=== PATIENT | male | born 1955 | race Caucasian/White ===

== ENCOUNTER 2018-07-05 13:36 | Inpatient (IN) | payer MEDICAID ==
[2018-07-05] MEDS ORDERED: PETROLAT,WHT/MIN OIL/SOD CHL 3.5 GM OPHT.OINT EACHEYE PRN (16:21)
[2018-07-05] MEDS ORDERED: GUAIFENESIN/DM 10 ML UDCUP PO PRN (16:50)
--- NOTE | 2018-07-05 18:09 | GHP ---
POST ADMISSION PHYSICIAN EVALUATION AND REHABILITATION TREATMENT PLAN. DATE OF ADMISSION: 07/05/2018 TIME OF EVALUATION: 16:35 REFERRING FACILITY: [facility]. REFERRING PHYSICIAN: Jake Cormier MD IMPAIRMENT GROUP: [id number]. DATE OF ONSET: 06/14/2018. CONSULTING PHYSICIANS: Pulmonary/Critical Care: Dr. Efren Zacraias. Neurologist: Dr. Hull. Hospital Medicine: Dr. Trejo. REHABILITATION DIAGNOSIS: Debility status post traumatic cardiac arrest with cognitive dysfunction. ETIOLOGIC DIAGNOSIS: Nontraumatic brain dysfunction. HISTORY OF PRESENT ILLNESS: This patient was admitted to [facility] on 06/14/2018, after being pinned under a car on which he was working, for approximately 1 hour. He suffered traumatic asphyxia with cardiac arrest. He had field intubation and return of spontaneous circulation and was placed on hypothermia after cardiac arrest protocol. Hospital evaluation included a chest CT which showed a nondisplaced right 1st rib fracture. Hospital course was complicated by rhabdomyolysis, metabolic encephalopathy, anemia, thrombocytopenia, aspiration pneumonia, atrial fibrillation, hypertension, acute kidney injury, and hypernatremia. He was extubated on 06/21/2018. A video fluoroscopic swallow study was done on 2017, which showed a high risk of aspiration. He had a feeding tube placed. It was be removed on 07/03/2018, as it became clogged. At that point, he was able to swallow and take adequate oral nutrition and hydration, so it was not replaced. He had functional and cognitive impairments, so when he was medically stabilized, he was ready for transfer to inpatient rehabilitation. LABS AND STUDIES IN THE HOSPITAL: CBC on 06/29/2018, showed normalized white blood cell count, which had been elevated at 5.16. He had anemia with a hemoglobin of 8.8 and hematocrit of 27.2, and these had been declining for several days. He had thrombocytosis with a platelet count of 507. The margoth of his platelet count had been 50 on 06/21/2018. He had a coagulopathy with elevated PT and PTT and these were improving as of 06/23/2018. Most recent metabolic profile showed a hyponatremia with a sodium of 133, otherwise, renal function and electrolytes were within normal limits. He had a low calcium of 7.5, and there had been an albumin as low as 1.8 during his stay. He had mild elevation of ALT at 110 and an alkaline phosphatase of 182. He had rhabdomyolysis with a creatine kinase of 18,708, on 06/17/2018, which subsequently improved. He had likely shock liver with AST and ALT greater than 2000. Troponin was normal. BNP was slightly elevated at 547. On admission, abdominal CT showed no abdominal or pelvic hemorrhage or organ laceration. He had degenerative lumbar spine with at least moderate stenosis at L4-L5. C-spine CT showed severe degenerative disk disease at C3-C4 through C6-C7 with moderate central canal stenosis. Chest CT showed no pneumothorax, no aortic rupture, dissection or mediastinal hematoma and showed a nondisplaced right 1st rib fracture. Head CT showed no acute hemorrhage or mass effect and no fractures. PRECAUTIONS: He is a fall risk. He has aspiration precautions. ACTIVE COMORBIDITIES: He has tier 2 comorbidity of dysphagia. He otherwise has no active tier 1, tier 2 or tier 3 comorbidities. PAST MEDICAL HISTORY: He denies any significant past medical history. PAST SURGERY HISTORY: Has not had previous surgeries. PREHOSPITAL MEDICATIONS: He was taking no medications. ADMISSION MEDICATIONS: 1. Metoprolol 25 mg p.o. twice daily. 2. Ophthalmic ointment each eye at bedtime. ALLERGIES: There are no known drug allergies. SOCIAL HISTORY: He lives with family and relatives and plans to discharge to his mother's home with assistance as needed. 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 He is not a tobacco smoker, though he was a smoker of marijuana. 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 FAMILY HISTORY: Noncontributory. REVIEW OF SYSTEMS: He has lost considerable weight during his hospitalization. He denies pain. He denies dyspnea. He has a cough which bothers him more at night and interrupts sleep. He denies nausea, vomiting, constipation, or diarrhea. He denies dysuria or urinary urgency or frequency. He denies joint pain or joint swelling. He is aware of some memory loss. He feels weak in his arms and legs, but otherwise denies any focal neurologic complaints. No vision changes and no headache. Otherwise, a 10-point review of systems is negative. PHYSICAL EXAM: VITAL SIGNS: Blood pressure is 127/80, heart rate is 79, respiratory rate is 19, oxygen saturation is 93% on room air. Temperature is 36.7 degrees centigrade. His weight is 54.1 kg for a body mass index of 18.7. GENERAL: This is a thin man, appears his chronologic age, sitting in a chair, dressed in street clothes, cooperative and in no acute distress. HEENT: Extraocular movements are intact. Pupils are equal, round, reactive to light. Mucous membranes are moist. Dentition is in good condition. NECK: Supple. HEART: Regular rate and rhythm with no murmurs, rubs, or gallops, and no JVD. LUNGS: Clear to auscultation bilaterally. ABDOMEN: Soft, nontender, nondistended with normoactive bowel sounds and no hepatosplenomegaly. EXTREMITIES: There is no cyanosis or clubbing. There is mild edema around the ankles bilaterally. Radial and dorsalis pedis pulses are 2+ bilaterally. NEUROLOGIC: He is alert and oriented x3. He is verbose. Cranial nerves 2-12 are grossly intact. There is no focal weakness. Sensation is intact to light touch. He is able to arise from seated with just contact guard assist and attains balance within normal stance using a front-wheeled walker. SKIN: He has erythema over the sacrum and gluteal fold. It is blanching. There is no ulceration. CURRENT LEVEL OF FUNCTION: Per the preadmission screen, he was on a dysphagia 2 diet with thin liquids. He required supervision with eating for limited bite size and limitation of distractions. He took liquids via cups or teaspoons. He needed multiple swallows and to stay upright with all p.o. intake. Grooming was done with contact guard using a front-wheeled walker to stand at the sink. Bathing required setup and moderate assistance with voice cues. Dressing the upper body required setup and standby assist with voice cues and the lower body required moderate assist with voice cues. Toileting required assistance for mine care. He had 1 episode of bladder incontinence on 06/28/2018, but otherwise was continent and he was continent of bowel. Bed mobility required contact guard assist. Transfers required contact guard to minimal assist for [id number]. He used a front-wheeled walker. Seated balance required standby assist and standing balance required minimal assist. Endurance was fair. He ambulated 350 feet with standby assist. He was found to have moderate to severe impairment in attention and executive function. On today's exam, he may require less assistance with standing and balance. Otherwise, there are no significant changes from the preadmission screen. IMPRESSION: This is a 63-year-old man who was pinned under a car that he was working on and suffered asphyxia and cardiac arrest. He was field resuscitated and field intubated and brought to the hospital with hypothermia after cardiac arrest protocol. He had hospital complications, including rhabdomyolysis, acute kidney injury, metabolic encephalopathy, aspiration pneumonia, atrial fibrillation, hypernatremia and subsequently hyponatremia after fluid resuscitation. He had dysphagia and high risk of aspiration and has developed severe malnutrition. He had tube feeding until the feeding tube became clogged and subsequently has recovered swallowing sufficient to maintain his nutrition and hydration needs. He was otherwise medically stable and ready for inpatient rehabilitation. His goal is to complete a rehabilitation stay and discharge to his mother's home with support of his sister. For a safe discharge, he will need to tolerate the least restrictive diet. He will need to demonstrate insight into his deficits to allow for the ability to be left alone for short periods of time. He will need to achieve modified independence for ADLs and functional activities and there will be patient and family education around his injury and impairments. He will have therapy with physical therapy, occupational therapy, and speech language pathology for 60 minutes per day for each discipline on 5-7 days of the week. His expected duration of stay is 7-10 days. It is anticipated that upon discharge he will continue to benefit from home health services including nursing, speech and language pathology, a nurse's aide , occupational therapy, and physical therapy. Additionally, he will likely benefit from a brain injury support group. PLAN: 1. Debility following prolonged hospitalization status post traumatic asphyxia and cardiac arrest on 06/14/2018, with impairments to mobility and activities of daily living. Physical and occupational therapy to optimize his mobility and activities of daily living. Toward a modified independent level. 2. Cognitive impairment status post asphyxia, cardiac arrest and metabolic encephalopathy. He appears to have considerable improvement. Assessment and treatment per Speech and Language Pathology. 3. Hypertension has been treated with metoprolol and this will be continued. 4. Cough at night interfering with sleep. I have prescribed guaifenesin/ dextromethorphan q.4 hours p.r.n. It is hoped that if his cough can be suppressed, he will get better sleep. This may be a postinfectious cough which potentially could respond to naproxen. He does not otherwise show signs or symptoms of congestive heart failure, though he had a mildly elevated BNP in the hospital. Echocardiogram on 06/17/2018, showed normal global systolic LV function with an ejection fraction of 60%. No regional wall motion abnormalities. Normal diastolic left ventricular function. Trivial mitral valve regurgitation and trivial tricuspid valve regurgitation. 5. Malnutrition and weight loss. There will be a consultation with the dietitian. 6. Atrial fibrillation in the hospital. Subsequently, he has been in regular sinus rhythm. Continue metoprolol. 7. First right rib fracture is currently asymptomatic. 8. Hyponatremia with a sodium of 133 two days ago. I will repeat a basic metabolic profile in the morning. 9. Anemia. I will repeat a CBC in the morning. 10. Prophylaxis. He has ambulated greater than 350 feet and he is low risk for deep venous thrombosis. We will not initiate pharmacologic prophylaxis. 11. Followup. There are no specific instructions in the discharge information from the hospital. Presumably, he will have follow up with Trauma Surgery as well as possibly Cardiology. This will be determined during his stay. He will need to establish with a primary care provider. /[id number]/MODL MTDD
--- NOTE | 2018-07-05 18:45 | PDOREHIP ---
Admission [facility] - Admission - 3 Day Assessment Period Admission Date/Day 1: 07/05/18 Day 2: 07/06/18 Day 3: 07/07/18 - Active Diagnoses Comorbidities and Co-existing Conditions at Admission: 37641. None of the Above - Skin Conditions Unhealed Pressure Ulcer (1 or more/Stage 1 or >)-Admission: 0. No # Stage 1 Pressure Ulcers-Admission: 0 # Stage 2 Pressure Ulcers-Admission: 0 # Stage 3 Pressure Ulcers-Admission: 0 # Stage 4 Pressure Ulcers-Admission: 0 # Unstageable Pressure Ulcers (Non-remove Dress)-Admission: 0 # Unstageable Pressure Ulcers (Slough/Eschar)-Admission: 0 # Unstageable Pressure Ulcers (Deep Tissue Injury)-Admission: 0
[2018-07-05] MEDS: METOPROLOL TARTRATE 25 MG TAB PO SCH (19:59)
[2018-07-06 08:30] LABS: PLATELET COUNT 445 10^3/uL (150-400)
[2018-07-06] MEDS: METOPROLOL TARTRATE 25 MG TAB PO SCH ×2 (09:11→20:10)
--- NOTE | 2018-07-06 18:10 | HOSPPROG ---
Hospitalist Progress Note Assessment/Plan: * Debility following cardiac arrest * cont PT/OT/speech * HTN * cont metoprolol * well controlled *Afib * heart sounds regular * metoprolol * rib fracture * decent pain control overnight * mild hyponatremia * stable * anemia * stable Subjective: slept well. just starting rehab. pain well controlled Objective: Vital Signs Temp Pulse Resp BP Pulse Ox 36.8 C 67 14 134/77 H 94 07/06/18 06:00 07/06/18 06:00 07/06/18 06:00 07/06/18 06:00 07/06/18 06:00 Laboratory Results 07/06/18 06:00 07/06/18 06:00 07/05/18 07/06/18 07/07/18 05:59 05:59 05:59 Intake Total 350 240 Output Total 950 870 Balance -600 -630 - Physical Exam Constitutional: no apparent distress, appears nourished, not in pain Eyes: anicteric sclera, EOMI Ears, Nose, Mouth, Throat: moist mucous membranes, hearing normal Cardiovascular: regular rate and rhythym, no murmur, rub, or gallop Respiratory: no respiratory distress Skin: warm Neurologic: AAOx3 Psychiatric: interacting appropriately, not anxious, not encephalopathic, thought process linear ICD10 Worksheet Patient Problems: Problems Problem Status Onset Anemia Acute Cardiac arrest due to trauma Acute Diarrhea Acute Fracture of one rib of right side Acute Thrombocytopenia Acute Traumatic asphyxiation Acute Ventilatory failure Acute
[2018-07-07] MEDS: METOPROLOL TARTRATE 25 MG TAB PO SCH ×2 (09:01→20:04)
--- NOTE | 2018-07-07 11:56 | HOSPPROG ---
Hospitalist Progress Note Assessment/Plan: * Debility following cardiac arrest * cont PT/OT/speech * HTN * cont metoprolol * well controlled *Afib * heart sounds regular * metoprolol * rib fracture * decent pain control overnight * mild hyponatremia * stable * anemia * stable * mild thrombocytopenia Subjective: tired at times. some mid -section pain Objective: Vital Signs Temp Pulse Resp BP Pulse Ox 36.7 C 89 18 114/79 90 L 07/07/18 07:53 07/07/18 07:53 07/07/18 07:53 07/07/18 07:53 07/07/18 07:53 Laboratory Results 07/06/18 06:00 07/06/18 06:00 07/06/18 07/07/18 07/08/18 05:59 05:59 05:59 Intake Total 350 580 Output Total 950 1620 400 Balance -600 -1040 -400 - Physical Exam Constitutional: no apparent distress, not in pain, cachectic Eyes: anicteric sclera, EOMI Ears, Nose, Mouth, Throat: moist mucous membranes Cardiovascular: regular rate and rhythym Respiratory: no respiratory distress, no rales or rhonchi, clear to auscultation Skin: warm Neurologic: AAOx3 Psychiatric: interacting appropriately, not anxious, not encephalopathic, thought process linear ICD10 Worksheet Patient Problems: Problems Problem Status Onset Anemia Acute Cardiac arrest due to trauma Acute Diarrhea Acute Fracture of one rib of right side Acute Thrombocytopenia Acute Traumatic asphyxiation Acute Ventilatory failure Acute
[2018-07-08] MEDS: METOPROLOL TARTRATE 25 MG TAB PO SCH ×2 (08:32→20:47)
--- NOTE | 2018-07-08 09:19 | SOAPPROG ---
SOAP Progress Note Assessment/Plan: Assessment: Debility following prolonged hospitalization status post traumatic asphyxia and cardiac arrest on 06/14/2018, with impairments to mobility and activities of daily living. * Initial functional independence measure is 89 on 07/08/2018. He is at supervision level for bed mobility. Transfers require standby assist. He has ambulated 200 ft with standby assist and front wheeled walker or tracking poles. He has climbed and descended 12 steps with bilateral rails and standby assist. Upper body and lower body dressing are accomplished with setup and cues. Grooming and hygiene is done standing at the supervision level. Bath transfers requires minimal assist. He toilet with supervision or contact guard assist. * Physical and occupational therapy to optimize his mobility and activities of daily living. Toward a modified independent level. Cognitive impairment status post asphyxia, cardiac arrest and metabolic encephalopathy. * Tangential, perseverative, reduced insight decreased attention and speed of processing.. Scored 23/30 on the [facility] mental status exam on ; increased to 29/30 on 07/06/2018. He appears to have considerable improvement. * Continue Speech and Language Pathology. Dysphagia. Has been advanced to dysphagia 2 diet continue LOADING UNIT OPERATOR SEATING. Hypertension. Adequate control with metoprolol. Subjective episodes of shortness of breath. He denies palpitations when these happen. Nocturnal cough has resolved. There has been no hypoxia demonstrated. Continue to monitor. Malnutrition and weight loss. There will be a consultation with the dietitian. Initiate daily weights starting 07/08/2018. Atrial fibrillation in the hospital. Subsequently, he has been in regular sinus rhythm. Continue metoprolol. First right rib fracture is currently asymptomatic. Hyponatremia with a sodium of 133 07/03/2018 in the hospital. Improved to 134 on 07/06/2018. Anemia. Improving. Prophylaxis. He has ambulated greater than 350 feet and he is low risk for deep venous thrombosis. No need for pharmacologic prophylaxis. DISPOSITION: Attended staffing, 15 min. Discussed with case management, nursing, dietitian, PT, OT, LOADING UNIT OPERATOR SEATING. Intends to discharge to his mother's home. 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 Tentative discharge date set for 07/16/2018. Followup. There are no specific instructions in the discharge information from the hospital. He will need to establish with a primary care provider. 07/08/18 15:12 Objective: Vital Signs Temp Pulse Resp BP Pulse Ox 36.9 C 87 16 109/76 93 07/08/18 06:12 07/08/18 08:32 07/08/18 06:12 07/08/18 08:32 07/08/18 06:12 Laboratory Results 07/06/18 06:00 07/06/18 06:00 07/07/18 07/08/18 07/09/18 05:59 05:59 05:59 Intake Total 580 1020 Output Total 1620 1800 Balance -1040 -780 - Time Spent With Patient Time Spent With Patient: Greater than 35 min floor time today, including more than 50% of time in coordination of care during staffing meeting, and counseling patient. ICD10 Worksheet Patient Problems: Problems Problem Status Onset Anemia Acute Cardiac arrest due to trauma Acute Diarrhea Acute Fracture of one rib of right side Acute Thrombocytopenia Acute Traumatic asphyxiation Acute Ventilatory failure Acute
--- NOTE | 2018-07-09 08:34 | SOAPPROG ---
SOSHERICE Progress Note Assessment/Plan: 63-year-old male status post a traumatic cardiac arrest on 06/14/2018 with impairments in mobility, self-care, cognition Today's update: Improved subjective dyspnea, self-reported improved tolerance to activity and therapies. He feels that his function is improving and especially his balance is improved allowing him to work harder in therapies. He is very optimistic for the coming week, spirits are good. No reports of therapy limiting medical issues. A total of 25 min was spent on the floor in the care of the patient, the majority of which was spent in the counseling and coordination of care of rehabilitation progress. Additional issues reviewed without change today include dysphagia, hypertension which is adequately controlled with metoprolol, weight loss, atrial fibrillation , 1st right rib fracture, hyponatremia, anemia, prophylaxis. 07/09/18 08:30 Subjective: Chief complaint: Rehab progress No acute events overnight. Patient denies any new shortness of breath or chest pain, no new numbness, tingling, or weakness. He reports that overall things have improved considerably in the last 24 hr, he feels that any dyspnea he was experiencing has resolved, he feels that functionally he is making lots of improvements and his dizziness that he previously reported has resolved. He feels very optimistic about the coming week and about discharging home with family. He has no new acute concerns, working well with therapies. Objective: Vital Signs Temp Pulse Resp BP Pulse Ox 36.7 C 65 16 120/78 93 07/09/18 06:24 07/09/18 06:24 07/09/18 06:24 07/09/18 06:24 07/09/18 06:24 Laboratory Results 07/06/18 06:00 07/06/18 06:00 07/08/18 07/09/18 07/10/18 05:59 05:59 05:59 Intake Total 1020 940 300 Output Total 1800 900 700 Balance -780 40 -400 Physical Exam - Physical Exam General Appearance: WD/WN, alert, no apparent distress, thin EENT: No scleral icterus (R), No scleral icterus (L) Respiratory: No respiratory distress, No accessory muscle use Cardiac/Chest: normal peripheral pulses, regular rate, rhythm, No edema Skin: normal color, warm/dry, No cyanosis, No diaphoresis Extremities: non-tender, No swelling Neuro/Psych: alert, oriented x 3, No normal mood/affect (Normal mood, slightly odd affect but appeared euthymic.) ICD10 Worksheet Patient Problems: Problems Problem Status Onset Anemia Acute Cardiac arrest due to trauma Acute Diarrhea Acute Fracture of one rib of right side Acute Thrombocytopenia Acute Traumatic asphyxiation Acute Ventilatory failure Acute
[2018-07-09] MEDS: METOPROLOL TARTRATE 25 MG TAB PO SCH ×2 (09:45→20:14)
[2018-07-10] MEDS: METOPROLOL TARTRATE 25 MG TAB PO SCH ×2 (08:28→21:13)
--- NOTE | 2018-07-10 12:20 | SOAPPROG ---
SOAP Progress Note Assessment/Plan: Assessment: Debility following prolonged hospitalization status post traumatic asphyxia and cardiac arrest on 06/14/2018, with impairments to mobility and activities of daily living. * Initial functional independence measure is 89 on 07/08/2018. He is at supervision level for bed mobility. Transfers require standby assist. He has ambulated 200 ft with standby assist and front wheeled walker or tracking poles. He has climbed and descended 12 steps with bilateral rails and standby assist. Upper body and lower body dressing are accomplished with setup and cues. Grooming and hygiene is done standing at the supervision level. Bath transfers requires minimal assist. He toilet with supervision or contact guard assist. * Physical and occupational therapy to optimize his mobility and activities of daily living. Toward a modified independent level. Cognitive impairment status post asphyxia, cardiac arrest and metabolic encephalopathy. * Tangential, perseverative, reduced insight decreased attention and speed of processing.. Scored 23/30 on the [facility] mental status exam on ; increased to 29/30 on 07/06/2018. He appears to have considerable improvement. * Continue Speech and Language Pathology. Dysphagia. Has been advanced to regular diet starting 07/09/2018. Continue ADDICTION NURSE. Hypertension. Adequate control with metoprolol. Advise further discussion with Cardiology or primary care provider after discharge regarding continuation of metoprolol. Subjective episodes of shortness of breath. He denies palpitations when these happen. Nocturnal cough has resolved. There has been no hypoxia demonstrated. Continue to monitor. Malnutrition and weight loss. There will be a consultation with the dietitian. Initiate daily weights starting 07/08/2018. Atrial fibrillation in the hospital. Subsequently, he has been in regular sinus rhythm. Continue metoprolol. First right rib fracture is currently asymptomatic. Hyponatremia with a sodium of 133 07/03/2018 in the hospital. Improved to 134 on 07/06/2018. Anemia. Improving. Prophylaxis. He has ambulated greater than 350 feet and he is low risk for deep venous thrombosis. No need for pharmacologic prophylaxis. DISPOSITION: Intends to discharge to his mother's home. 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 Tentative discharge date set for 07/16/2018. Followup. There are no specific instructions in the discharge information from the hospital. He will need to establish with a primary care provider. 01/09/19 12:17 Subjective: No complaints. He feels good about his progress in rehabilitation and increasing ability to take care of his daily needs. He would like to stop taking medications and particularly the metoprolol. Objective: Vital Signs Temp Pulse Resp BP Pulse Ox 36.4 C 67 15 121/79 H 93 07/10/18 07:07 07/10/18 07:07 07/10/18 07:07 07/10/18 07:07 07/10/18 07:07 Laboratory Results 07/06/18 06:00 07/06/18 06:00 07/09/18 07/10/18 07/11/18 05:59 05:59 05:59 Intake Total 940 1220 Output Total 900 900 Balance 40 320 Physical Exam - Physical Exam General Appearance: WD/WN, alert, no apparent distress Respiratory: No respiratory distress, No accessory muscle use Skin: normal color, warm/dry Neuro/Psych: alert, normal mood/affect, oriented x 3, other (Ambulates in the mayers with 2 tracking poles, overall normal gait though has minor scissoring with 1 step. No loss of balance noted.) ICD10 Worksheet Patient Problems: Problems Problem Status Onset Anemia Acute Cardiac arrest due to trauma Acute Diarrhea Acute Fracture of one rib of right side Acute Thrombocytopenia Acute Traumatic asphyxiation Acute Ventilatory failure Acute
[2018-07-11] MEDS: METOPROLOL TARTRATE 25 MG TAB PO SCH ×3 (08:42→20:39)
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
--- NOTE | 2018-07-11 16:58 | WOCRNPDOC ---
WOCRN Advanced Assessment Note - Skin Integrity Problem, Advanced Assess Sacrum Dressing Type: Mepilex Border (sacral) Dressing Description: Clean/Dry, Intact Exudate Amount: None Integumentary Issue Intervention: Visualized Under Dressing Trish Wound Tissue: Non-blanching, Intact Wound Edges: Well Defined Site Measurement - Head-to-Toe Length X Width X Depth (cm): [id number], [id number] Pressure Injury Stage: Stage 1 Pressure Injury Present on Admit: No Skin Integrity Problem Comment: Patient rolled to his left side independently. Pulled down the mepilex sacral dressing to reveal two areas of non-blanching erythema to either side of a bony prominance on the patient's sacrum, consistent with stage 1 pressure injuries. Skin is intact and non-tender with palpation. Mepilex dressing left in place. Attempted education with the patient about the importance of shifting his weight and being off of his back, suggesting that we implement measures now to avoid worsening of the areas of concern on his sacrum. Patient disinterested in the information provided and states that "his body is very proficient at healing". Continue to encourage the patient to offload the area. Wound care will not continue to follow this wound. Please reconsult if the area opens.
[2018-07-12] MEDS: METOPROLOL TARTRATE 25 MG TAB PO SCH ×2 (08:13→20:43)
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
[2018-07-13] MEDS: METOPROLOL TARTRATE 25 MG TAB PO SCH ×2 (09:44→20:12)
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
[2018-07-14] MEDS: METOPROLOL TARTRATE 25 MG TAB PO SCH ×2 (08:22→20:18)
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
[2018-07-15 07:14] VITALS: BP 122/75
[2018-07-15] MEDS: METOPROLOL TARTRATE 25 MG TAB PO SCH (08:14)
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
== END 2018-07-15 14:56 | disposition home or self-care (01) | DRG 58 ==
LOC: MERGE 14:47 → BREH 14:47
PROVIDERS: ADMIT Internal Medicine Hospice and Palliative Medicine; ATTEND Internal Medicine Hospice and Palliative Medicine
DX: G31.84 Mild cognitive impairment of uncertain or unknown etiology (principal); Z86.74 Personal history of sudden cardiac arrest; R13.10 Dysphagia, unspecified; I10 Essential (primary) hypertension; E43 Unspecified severe protein-calorie malnutrition; D64.9 Anemia, unspecified; I48.91 Unspecified atrial fibrillation; R05 Cough; E87.1 Hypo-osmolality and hyponatremia; S22.31XD Fracture of one rib, right side, subsequent encounter for fracture with routine healing; W23.1XXD Caught, crushed, jammed, or pinched between stationary objects, subsequent encounter; Y93.89 Activity, other specified
CPT/HCPCS: 92507-GN; 92523-GN; 92526-GN; 92610-GN; 97110-GO; 97110-GP; 97112-GP; 97116-GP; 97161-GP; 97166-GO; 97530-GO; 97530-GP; 97535-GO